=== PATIENT | female | born 1995 | race Caucasian/White ===

== ENCOUNTER 2018-01-30 09:58 | Emergency (ER) | payer SELFPAY ==
[~2018-01-30] VITALS: Ht 165.1 cm; Wt 45.5 kg
[2018-01-30 10:14] VITALS: BP 138/67; PULSE 92; RESP 18; TEMP 98; O2SAT 99
[2018-01-30] MEDS ORDERED: PROZ20CA11 PO (10:29)
[2018-01-30] MEDS ORDERED: DICY10 PO (11:12)
--- NOTE | 2018-01-30 11:14 | PD ---
HPI Chief Complaint: GI Complaint Time Seen by Provider: 10:20 Travel History International Travel<30 days: No Contact w/Intl Traveler<30days: No Traveled to known affect area: No History of Present Illness HPI Patient 22-year-old female who presents emergency department for evaluation of diarrhea and intermittent abdominal cramping. Patient states that she quit Suboxone cold turkey about 6 days ago, she went to an organized rehabilitation program and is now currently residing in a [facility] house. She just wanted to make sure was nothing more severe, she states her symptoms are mild, for the past 6 days, associated with some abdominal cramping which occurs just prior to passing stool, context as above. Patient denies any vaginal bleeding vaginal discharge nausea vomiting or blood in the stool peer PFSH Past Medical History Depression: Yes Diminished Hearing: No Hepatitis: Yes (C) Psychiatric: Yes Tetanus Vaccination: Unknown ?: Not LMP: UNKNOWN, IRREGULAR Past Surgical History Tonsillectomy: Yes (T & A) Social History Alcohol Use: No Tobacco Use: Yes (1/2ppd) Substance Use: No Allergies-Medications (Allergen,Severity, Reaction): Coded Allergies: Penicillins (Verified Allergy, Intermediate, 01/30/18) HIVES No Known Allergies (Verified Allergy, Unknown, 01/30/18) Reported Meds & Prescriptions Reported Meds & Active Scripts Active Bentyl (Dicyclomine HCl) 10 Mg Cap 10 Mg PO TID PRN Reported Prozac (Fluoxetine HCl) 20 Mg Cap 20 Mg PO DAILY Review of Systems Except as stated in HPI: all other systems reviewed are Neg Physical Exam Narrative GENERAL: Well-developed well-nourished, quite pleasant in no obvious distress peer SKIN: Focused skin assessment warm/dry. No rash no wound HEAD: Atraumatic. Normocephalic. EYES: Pupils equal and round. No scleral icterus. No injection or drainage. ENT: No nasal bleeding or discharge. Mucous membranes pink and moist. NECK: Trachea midline. No JVD. CARDIOVASCULAR: Regular rate and rhythm. No murmur appreciated. RESPIRATORY: No accessory muscle use. Clear to auscultation. Breath sounds equal bilaterally. GASTROINTESTINAL: Abdomen soft, non-tender, nondistended. Hepatic and splenic margins not palpable. No rebound no percussive tenderness peer MUSCULOSKELETAL: No obvious deformities. No clubbing. No cyanosis. No edema. NEUROLOGICAL: Awake and alert. No obvious cranial nerve deficits. Motor grossly within normal limits. Normal speech. PSYCHIATRIC: Appropriate mood and affect; insight and judgment normal. Data Data Last Documented VS Vital Signs Date Time Temp Pulse Resp B/P (MAP) Pulse Ox O2 Delivery O2 Flow Rate FiO2 01/30/18 10:14 98.0 92 18 138/67 (90) 99 Orders Orders Urinalysis - C+S If Indicated (01/30/18 10:42) Ed Urine Pregnancytest Poc (01/30/18 10:42) Ed Discharge Order (01/30/18 11:14) Labs Laboratory Tests Test 01/30/18 11:00 Urine Color YELLOW Urine Turbidity CLEAR Urine pH 5.5 Urine Specific [place] 1.020 Urine Protein NEG mg/dL Urine Glucose (UA) NEG mg/dL Urine Ketones NEG mg/dL Urine Occult Blood NEG Urine Nitrite NEG Urine Bilirubin NEG Urine Urobilinogen LESS THAN 2.0 MG/DL Urine Leukocyte Esterase NEG Urine RBC 1 /hpf Urine WBC 1 /hpf Urine Squamous Epithelial Cells 3 /hpf Urine Renal Epithelial Cells <1 /hpf Urine Mucus FEW /lpf Microscopic Urinalysis Comment CULT NOT INDICATED MDM Medical Decision Making Medical Screen Exam Complete: Yes Emergency Medical Condition: Yes Differential Diagnosis Opiate withdrawal, diarrhea, significant dehydration unlikely, Narrative Course UPT negative, her symptoms are highly likely due to physiologic Suboxone withdrawal, she is not having any other withdrawal symptoms however. She appears well-hydrated no indication further workup at this time. 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 She was encouraged to continue to abstain from drugs and controlled substances, she requested Phenergan but I suggested that this does have some abuse potential and she stated that she did not want it then, will place on Bentyl instead. Other symptomatic management and return to ED criteria were discussed. She is stable for discharge Diagnosis Primary Impression: Diarrhea Qualified Codes: R19.7 - Diarrhea, unspecified Additional Instructions: Take Psyllium powder once a day and eat plenty of fiber. Drink plenty of fluids , half gatorade/powerade and half water. Med/Other Pt SpecificInfo: Prescription(s) given Scripts Dicyclomine (Bentyl) 10 Mg Cap 10 MG PO TID Y for ABDOMINAL CRAMPING, #30 CAP 0 Refills Prov: Brigido Lucero MD 01/30/18 Disposition: 01 DISCHARGE HOME Condition: Stable Brigido Lucero MD Jan 30, 2018 11:14
[2018-01-30 11:27] LABS: BILIRUBIN, URINE NEG (NEG); BLOOD, URINE NEG (NEG); GLUCOSE,URINE NEG (NEG); KETONE, URINE NEG (NEG); MUCUS URINE FEW /lpf (OCC); NITRITE,URINE NEG (NEG); PH, URINE 5.5 (5.0-8.5); RENAL EPITHELIAL CELLS <1 /hpf; SQUAMOUS EPITHELIAL CELL URINE 3 /hpf (0-5); URINE COLOR YELLOW (YELLW/STRAW); URINE LEUKOCYTE ESTERASE NEG (NEG)
== END 2018-01-30 12:14 | disposition home or self-care (01) ==
LOC: NEPD 09:58
DX: R19.7 Diarrhea, unspecified (principal); F32.9 Major depressive disorder, single episode, unspecified; B19.20 Unspecified viral hepatitis C without hepatic coma; F17.200 Nicotine dependence, unspecified, uncomplicated
CPT/HCPCS: 81001; 84703; 99283